=== PATIENT | female | born 1965 | race Caucasian/White ===

== ENCOUNTER 2020-10-06 11:25 | Outpatient (CLI) | payer BC, SELFPAY ==
--- NOTE | ~2020-10-06 | US_ITS ---
EXAMINATION: US abdomen limited EXAM DATE: 10/06/2020 12:00 INDICATION: Epigastric pain. TECHNIQUE: Multiple grayscale and Doppler images of the abdomen right upper quadrant were obtained (b y a technologist who performed the scan) and subsequently reviewed. There is no prior study for lalitha figueroa. FINDINGS: The pancreatic head and body are normal in appearance. The pancreatic tail is not visualized. The l iver has normal echogenicity and contour. There are no focal liver lesions identified. There is no evidence of intrahepatic biliary duct dilation. Portal venous flow was seen in the hepatopedal, nor mal direction and has normal Doppler waveform. Common bile duct measures 3 mm, which is normal. The gallbladder wall is thickened at 6 mm, with expe cted amount of distention. No sonographic evidence of pericholecystic fluid. There is cholelithiasi s. Technologist performing exam reports patient did not demonstrate sonographic Klein's sign. Ple ase note that this sign is less reliable in patients who have received pain medication. IMPRESSION: Cholelithiasis. Gallbladder wall thickening. Could be chronic cystitis, since no sonograp hic Klein's sign was demonstrated. Clinical correlation, consider HIDA scan. Reviewed, dictated and finalized at location B. [facility] IMPRESSION: Cholelithiasis. Gallbladder wall thickening. Could be chronic cysti tis, since no sonographic Klein's sign was demonstrated. Clinical correlation, consider HIDA scan.
== END 2020-10-06 11:26 | disposition home or self-care (01) ==
PROVIDERS: PCP Family Medicine; Visit Provider Family Medicine
DX: R10.13 Epigastric pain (principal); K80.20 Calculus of gallbladder without cholecystitis without obstruction
CPT/HCPCS: 76705

== ENCOUNTER → 2020-11-08 00:37 | Outpatient (CLI) | payer BC, SELFPAY ==
[2020-11-08 18:31] LABS: SARS-CoV-2 RNA PCR Negative
== END ==
PROVIDERS: PCP Family Medicine; Visit Provider Internal Medicine Gastroenterology
DX: Z01.812 Encounter for preprocedural laboratory examination (principal); Z20.822 Contact with and (suspected) exposure to COVID-19
CPT/HCPCS: C9803; U0003; U0005

== ENCOUNTER 2020-11-11 04:35 | Day surgery (SDC) | payer BC, SELFPAY ==
[2020-10-28 13:19] VITALS: BMI 47.3
[2020-11-11 08:16] VITALS: BP 146/88; PULSE 81; RESP 20; TEMP 36.3; O2SAT 100; BMI 48.6
[2020-11-11] MEDS: LACTATED RINGERS 1,000 ML 150 ML IV CONT (08:29)
--- NOTE | 2020-11-11 08:50 | WPDANESEPPF ---
Anes - Initial Pre Proc Eval Procedure: Operation Date: 11/11/20 09:30 Proposed Procedures p Esophagogastroduodenoscopy & Screening Colonoscopy - Compa Huddleston MD Date/Time: 11/11/20 08:50 Surgeon: Compa Huddleston MD Pre Op Diagnosis: neoplasm screen, epigastric pain Patient Data Age: 55 Gender: F Height: 5 ft 9 in Weight: 149.3 kg Last Vital Signs Temp 97.3 F L 11/11/20 08:16 Pulse 81 11/11/20 08:16 Resp 20 11/11/20 08:16 BP 146/88 H 11/11/20 08:16 Pulse Ox 100 11/11/20 08:16 Allergies Allergy/AdvReac Type Severity Reaction Status Date / Time No Known Allergies Allergy Mild Verified 11/11/20 08:16 Home Medications Medication Instructions Recorded Confirmed Type metoprolol succinate 100 mg See Rx Instructions .ROUTE 06/12/20 10/28/20 Rx tablet,extended release 24 hr .COMPLEX #90 tablet losartan 50 mg tablet 50 mg PO DAILY #90 tablet 06/13/20 10/28/20 Rx esomeprazole magnesium 40 mg 40 mg PO DAILY #30 cap 10/05/20 10/28/20 Rx capsule,delayed release Patient hx anesthesia problems: none Family hx anesthesia problems: none PMFSH Past Medical History Medical History Cholelithiasis Essential hypertension Obesity, Class III, BMI 40-49.9 (morbid obesity) Family History Family History Mother Hypertension Family history of congenital heart disease Family history of dementia Sibling Hypertension Patient's brother is in good health Father Family history of Parkinson's disease Grandparent Family history of type 2 diabetes mellitus Social History Social History (Updated 10/28/20 @ 13:17 by Mary Berry RN) Smoking status: Never smoker Second hand tobacco smoke exposure: No Alcohol intake: never Substance use: never Substance use type: does not use Living arrangements: with family Gender identity (if verbalized by the patient): Female Sexual Orientation (if Verbalized by the Patient): Straight or Heterosexual Spiritual care concerns: No Agree to blood products: No Anes - Eval Final PreProcedure Day of Procedure 11/11/20 08:50 Patient weight: morbidly obese Heart: regular rate and rhythm Lungs: clear to auscultation Airway: Mallampati scale class II Neurological: alert and oriented Last oral intake: >/= 8 hours ASA classification: III Emergent: no Anesthetic plan: proceed Anesthesia type and monitoring: general GIVS and standard monitoring Informed Consent: The patient's anesthetic plan and its attendant risks and benefits were discussed with the patient/family/POA. Questions were solicited and answers provided to the satisfaction of the patient/family/POA.
--- NOTE | 2020-11-11 08:54 | PM.HPGS ---
History of Present Illness History of Present Illness Consent: Risks, benefits, and alternatives have been discussed and questions answered. Patient agrees to proceed with procedure. Chief complaint: neoplasm screen, epigastric pain Narrative: Yani Fuentes is a 55 year old female Who has been having episodes of epigastric pain for the past few weeks. She is also due for screening colonoscopy Review of Systems Review of Systems: All systems reviewed & are unremarkable except as noted in HPI and below PMFSH Past Medical History Medical History Cholelithiasis Essential hypertension Obesity, Class III, BMI 40-49.9 (morbid obesity) Family History Family History Mother Hypertension Family history of congenital heart disease Family history of dementia Sibling Hypertension Patient's brother is in good health Father Family history of Parkinson's disease Grandparent Family history of type 2 diabetes mellitus Social History Social History Smoking status: Never smoker Second hand tobacco smoke exposure: No Alcohol intake: never Substance use: never Substance use type: does not use Living arrangements: with family Gender identity (if verbalized by the patient): Female Sexual Orientation (if Verbalized by the Patient): Straight or Heterosexual Spiritual care concerns: No Agree to blood products: No Meds Home Medications and Allergies Home Medications Medication Instructions Recorded Confirmed Type metoprolol succinate 100 mg See Rx Instructions .ROUTE 06/12/20 10/28/20 Rx tablet,extended release 24 hr .COMPLEX #90 tablet losartan 50 mg tablet 50 mg PO DAILY #90 tablet 06/13/20 10/28/20 Rx esomeprazole magnesium 40 mg 40 mg PO DAILY #30 cap 10/05/20 10/28/20 Rx capsule,delayed release Allergies Allergy/AdvReac Type Severity Reaction Status Date / Time No Known Allergies Allergy Mild Verified 11/11/20 08:16 Vital Signs Vital Signs - 24 hr 11/11/20 08:16 Temperature 36.3 C L Pulse Rate 81 Respiratory Rate 20 Blood Pressure 146/88 H Pulse Oximetry 100 Exam Const: General: alert Orientation/consciousness: patient oriented x3 Resp: Auscultation: clear to auscultation bilaterally Cardio: Rhythm: regular rhythm GI: GI Palp: Yes Soft to palpation and No Tenderness to palpation present (GI) Neuro: General: patient oriented x3 Assessment and Plan Assessment and plan (1) Epigastric abdominal pain: Code(s): R10.13 - Epigastric pain Status: Acute Assessment and Plan: EGD with possible biopsy or dilatation or cautery. (2) Colon cancer screening: Code(s): Z12.11 - Encounter for screening for malignant neoplasm of colon Status: Acute Assessment and Plan: Colonoscopy with possible biopsy or polypectomy or cautery or injection of substances.
[2020-11-11 09:34] VITALS: BP 109/61; PULSE 81; RESP 19; O2SAT 96
[2020-11-11 09:44] VITALS: BP 108/71; PULSE 78; RESP 25; O2SAT 96
[2020-11-11 09:54] VITALS: BP 120/72; PULSE 76; RESP 16; O2SAT 94
== END 2020-11-11 10:05 | disposition home or self-care (01) ==
PROVIDERS: PCP Family Medicine; Visit Provider Internal Medicine Gastroenterology
PROC: 0DJ08ZZ Inspection of Upper Intestinal Tract, Via Natural or Artificial Opening Endoscopic (ICD-10-PCS; CPT 43235; principal; 2020-11-11 09:30)
DX: Z12.11 Encounter for screening for malignant neoplasm of colon (principal); K63.5 Polyp of colon; R10.13 Epigastric pain; I10 Essential (primary) hypertension; E66.01 Morbid (severe) obesity due to excess calories; Z68.42 Body mass index [BMI] 45.0-49.9, adult
CPT/HCPCS: 43239; 45380; 87081; 88305; J2001; J2704; J7120

== ENCOUNTER 2020-11-14 09:25 | Outpatient (CLI) | payer BC, SELFPAY ==
--- NOTE | ~2020-11-14 | NM_ITS ---
EXAMINATION: NM hepatobiliary wo pharm DATE: 11/14/2020 13:19 INDICATION: Cholelithiasis. COMPARISON: Ultrasound 10/06/2020 TECHNIQUE: 4.7 mCi Tc-99m mebrofenin (Choletec) was administered intravenously. Scintigraphic images of the abdomen were obtained for one hour. Delayed images were obtained at 4 hours. FINDINGS: There is normal clearance of radiotracer from the blood pool. There is homogeneous tracer u ptake by the liver. Activity progresses to the bowel. IMPRESSION: 1. Lack of activity in the gallbladder by 4 hours, consistent with acute cholecystitis. Reviewed, dictated and finalized at location A. IMPRESSION: 1. Lack of activity in the gallbladder by 4 hours, consistent with acute michael cystitis.
== END 2020-11-14 09:26 | disposition home or self-care (01) ==
PROVIDERS: PCP Family Medicine; Visit Provider Nurse Practitioner Family
DX: K80.20 Calculus of gallbladder without cholecystitis without obstruction (principal)
CPT/HCPCS: 78226; A9537

== ENCOUNTER 2023-10-23 08:15 | Outpatient (RCR) | payer BC, SELFPAY ==
[2023-09-03 10:46] VITALS: BMI 41.8
[2023-10-23 08:17] VITALS: BMI 39.7
[2023-10-23 08:29] VITALS: BMI 39.7
== END 2023-12-02 23:59 | disposition home or self-care (01) ==
LOC: ANHDMC 08:15
PROVIDERS: PCP Family Medicine; Visit Provider Family Medicine
DX: E11.9 Type 2 diabetes mellitus without complications (principal); Z71.3 Dietary counseling and surveillance
CPT/HCPCS: 97802; 97803

== ENCOUNTER 2023-11-21 13:31 | Outpatient (CLI) | payer BC, SELFPAY ==
--- NOTE | ~2023-11-21 | MM_ITS ---
EXAMINATION: MM screening chrissy BI w ursula HISTORY: Screening TECHNIQUE: Craniocaudal and mediolateral oblique 3-D tomosynthesis images were obtained and synthetic 2-D images were generated. CAD analysis was submitted and interpreted. COMPARISON: 07/29/2015 BREAST PARENCHYMAL COMPOSITION: Not dense: There are scattered areas of fibroglandular density. FINDINGS: There is no evidence of suspicious mass, calcification, or architectural distortion to sugg est malignancy in either breast. There has been no suspicious interval change. IMPRESSION: 1. No mammographic evidence of malignancy. 2. Recommend routine screening mammography in one year. BI-RADS Category 1: Negative Reviewed, dictated and finalized at location A.
== END 2023-11-21 13:32 ==
LOC: MICIMG 13:32
PROVIDERS: PCP Nurse Practitioner; Visit Provider Nurse Practitioner
DX: Z12.31 Encounter for screening mammogram for malignant neoplasm of breast (principal)
CPT/HCPCS: 77063; 77067